=== PATIENT | male | born 1990 | race Caucasian/White ===

== ENCOUNTER 2017-03-18 14:41 | Emergency (ER) | payer BC ==
[2017-03-18] MEDS ORDERED: ONDANSETRON *ODT* 4 MG TABLET SL ONE (14:55)
--- NOTE | 2017-03-18 14:55 | PDOC ---
Rapid Medical Evaluation Time Seen by Provider: 03/18/17 14:51 Medical Evaluation: 03/18/17 14:51 The patient presents with a chief complaint of: Vomiting since yesterday afternoon. Vomits with eating. Denies fever, diarrhea, constipation. Denies abdominal pain I have performed a brief in-person evaluation of this patient; Pertinent physical exam findings: Soft non-tender abdomen. No rebound or guarding I have ordered the following: Quoc The patient will proceed to the ED for further evaluation.
[2017-03-18 14:57] VITALS: BP 128/80; PULSE 88; TEMP 99.1; BMI 29.7
--- NOTE | 2017-03-18 15:34 | PDOC ---
History of Present Illness - General Chief Complaint: Nausea/Vomiting Stated Complaint: VOMITING Time Seen by Provider: 03/18/17 14:51 History Source: Patient Exam Limitations: No Limitations, Language Barrier - History of Present Illness Initial Comments: 03/18/17 15:50 Patient is a [26-year-old male with no significant medical history currently with cough and cold-like symptoms took 2 [id number] cold medicines yesterday, took 4 tablets at one time has been dizzy and nauseous since, vomited 17 times since taking the medication. Patient denies any chest pain or shortness of breath, no abdominal pain just complaining of significant vertigo and nausea.] Past Medical History: [Denies]. Allergies: No known allergies Medications: [cold ease, and advil cold and flu PRN] Family History: Non-contributory Social History: Denies smoking, alcohol use, or IVDU Vital signs on arrival are [notable for pulse of 96.] Review of Systems GENERAL/CONSTITUTIONAL: [No fever or chills. No weakness. No weight change.] HEAD, EYES, EARS, NOSE AND THROAT: [Nasal congestion, runny nose No change in vision. No ear pain or discharge. No sore throat. ] CARDIOVASCULAR: [No chest pain or shortness of breath.] RESPIRATORY: [No cough, wheezing, or hemoptysis.] GASTROINTESTINAL: [No nausea, vomiting, diarrhea or constipation. No rectal bleeding.] GENITOURINARY: [No dysuria, frequency, or change in urination.] MUSCULOSKELETAL: [No joint or muscle swelling or pain. No neck or back pain.] SKIN AND BREASTS: [No rash or easy bruising.] NEUROLOGIC: [No headache, vertigo, loss of consciousness, or loss of sensation.] PSYCHIATRIC: [No depression or anxiety.] ENDOCRINE: [No increased thirst. No abnormal weight change.] HEMATOLOGIC/LYMPHATIC: [No anemia, easy bleeding, or history of blood clots.] ALLERGIC/IMMUNOLOGIC: [No hives or skin allergy. No latex allergy.] Physical Exam: GENERAL: [The patient is awake, alert, and fully oriented, in no acute distress. ] HEAD: [Normal with no signs of trauma.] EYES: [Pupils equal, round and reactive to light, extraocular movements intact, sclera anicteric, conjunctiva clear. Nystagmus] ENT: [Ears normal, nares patent, oropharynx clear without exudates. Moist mucous membranes. No uvula deviation] NECK: [Normal range of motion, supple without lymphadenopathy, JVD, or masses.] LUNGS: [Breath sounds equal, clear to auscultation bilaterally. No wheezes, and no crackles.] HEART: [Regular rate and rhythm, normal S1 and S2 without murmur, rub or gallop. ] ABDOMEN: [Soft, nontender, normoactive bowel sounds. No guarding, no rebound. No masses. No bruising or abrasions] MUSCULOSKELETAL: [Normal range of motion, no edema. No clubbing or cyanosis. No cords, erythema, or tenderness. No CVA Tenderness with fist.] NEUROLOGICAL: [Cranial nerves II through XII grossly intact. Normal speech, normal gait. Positive Romberg] PSYCH: [Normal mood, normal affect.] SKIN: [Warm, Dry, normal turgor, no rashes or lesions noted.] 03/18/17 16:37 Past History - Past Medical History Allergies/Adverse Reactions: Allergies Allergy/AdvReac Type Severity Reaction Status Date / Time No Known Allergies Allergy Verified 03/18/17 15:24 Home Medications: Ambulatory Orders Ondansetron [Zofran Odt -] 4 mg SL TID #21 od.tablet 03/18/17 - Suicide/Smoking/Psychosocial Hx Smoking History: Never smoked Have you smoked in the past 12 months: No Hx Alcohol Use: No Drug/Substance Use Hx: No *Physical Exam - Vital Signs Last Vital Signs Temp Pulse Resp BP Pulse Ox 99.1 F 88 20 128/80 98 03/18/17 14:53 03/18/17 14:53 03/18/17 14:53 03/18/17 14:53 03/18/17 14:53 ED Treatment Course - LABORATORY CBC & Chemistry Diagram: 03/18/17 15:50 03/18/17 15:50 Medical Decision Making - Medical Decision Making 03/18/17 15:52 A/P: Patient here for evaluation of dizziness, cough and cold-like symptoms patient has had significant vertigo with multiple episodes of vomiting since taking cold medication yesterday. Zofran was given while in triage will send CBC and CMP because of amount of medication taken for cough and cold-like symptoms to rule out any kidney or liver damage. 1 L of normal saline also send rapid influenza 03/18/17 16:37 03/18/17 17:09 Laboratory Results - last 24 hr 03/18/17 03/18/17 15:50 15:50 WBC 12.8 H RBC 5.14 Hgb 15.3 Hct 46.0 MCV 89.6 MCH 29.7 MCHC 33.2 RDW 12.9 Plt Count 199 MPV 10.0 Neutrophils % 84.1 H Lymphocytes % 9.3 Monocytes % 5.6 Eosinophils % 0.7 Basophils % 0.3 Sodium 138 Potassium 4.3 Chloride 99 Carbon Dioxide 31 Anion Gap 8 BUN 11 Creatinine 0.7 Creat Clearance w eGFR > 60 Random Glucose 106 Calcium 9.8 Total Bilirubin 1.8 H AST 16 ALT 39 Alkaline Phosphatase 103 Total Protein 8.3 H Albumin 4.5 Patient's white count is elevated with no shift. Patient stated no abdominal pain, increased nausea Zofran second dose 4 mg given still receiving his IV fluids. He reports that he feels better after IV fluids, able to tolerate fluids. We'll DC patient home on Zofran increase fluid intake if fever, abdominal pain, or any other concern patient to return immediately to ER. He denies any abdominal pain prior to discharge. I discussed the physical exam findings, ancillary test results and final diagnoses with the patient. I answered all of the patient's questions. The patient was satisfied with the care received and felt comfortable with the discharge plan and treatment plan. The patient will call to arrange follow-up and will return to the Emergency Department with any new, persistent or worsening symptoms. *DC/Admit/Observation/Transfer Diagnosis at time of Disposition: Nausea & vomiting Qualifiers: Vomiting type: unspecified Vomiting Intractability: non-intractable Qualified Code(s): R11.2 - Nausea with vomiting, unspecified Medication reaction Qualifiers: Encounter type: initial encounter Qualified Code(s): T88.7XXA - Unspecified adverse effect of drug or medicament, initial encounter - Discharge Dispostion Disposition: HOME Condition at time of disposition: Stable Admit: No - Prescriptions Prescriptions: Ondansetron [Zofran Odt -] 4 mg SL TID #21 od.tablet - Referrals Referrals: Parish Hurtado MD [Primary Care Provider] - - Patient Instructions Printed Discharge Instructions: DI for Vomiting -- Adult Additional Instructions: Increase fluids, Gatorade Do not eat any fried foods, milk or acidic foods Do not take any medication [id number] until symptoms are resolving If unable to eat or drink, increased nausea or pain return to ER immediately - Post Discharge Activity Forms/Work/School Notes: Back to Work
[2017-03-18] MEDS ORDERED: SODIUM CHLORIDE 0.9% 1000 ML INFUS.BAG IV ONE (15:35)
[2017-03-18 15:57] LABS: BASO % 0.3 % (0-2.0); EOS # 0.1 #; EOS % 0.7 % (0-4.5); LYMPH # 1.2; MCH 29.7 pg (25.7-33.7); MCHC 33.2 g/dl (32.0-35.9); MEAN CELL VOLUME 89.6 fl (80-96); MONO # 0.7 #; NEUT # 10.8 #; NEUT % 84.1 % (42.8-82.8); PLATELET COUNT 199 K/MM3 (134-434); RDW 12.9 % (11.9-15.9); WHITE BLOOD COUNT 12.8 K/mm3 (4.0-10.0)
[2017-03-18 16:38] LABS: GLUCOSE,RANDOM 106 mg/dL (74-106)
[2017-03-18 16:39] LABS: ANION GAP 8 (8-16); CALCIUM 9.8 mg/dL (8.5-10.1); CO2 31 mmol/L (21-32); CREATININE 0.7 mg/dL (0.7-1.3)
[2017-03-18 16:40] LABS: ALBUMIN 4.5 g/dl (3.4-5.0); ALK PHOS 103 U/L (45-117); BILIRUBIN,TOTAL 1.8 mg/dL (0.2-1.0); SGOT/AST 16 U/L (15-37); SGPT/ALT 39 U/L (12-78); TOT PROT 8.3 g/dl (6.4-8.2)
[2017-03-18] MEDS ORDERED: ONDANSETRON 4 MG TABLET PO ONE (17:07)
[2017-03-18] MEDS ORDERED: ONDANSETRON *ODT* 4 MG TABLET ONE (17:12)
== END 2017-03-18 18:01 | disposition home or self-care (01) ==
LOC: JERFT 14:41
DX: R11.2 Nausea with vomiting, unspecified (principal); T50.995A Adverse effect of other drugs, medicaments and biological substances, initial encounter; Y92.89 Other specified places as the place of occurrence of the external cause
CPT/HCPCS: 36415; 80053; 85025; 87804; 99281-25

== ENCOUNTER 2022-10-15 11:17 | Emergency (ER) | payer BC ==
[2022-10-15 11:32] VITALS: BP 135/73; PULSE 78; RESP 17; TEMP 98.4; BMI 30.5
[2022-10-15] MEDS ORDERED: KETOROLAC TROMETHAMINE 30 MG/1 ML VIAL IM ONE (11:54)
[2022-10-15] MEDS ORDERED: KETOROLAC TROMETHAMINE 30 MG/1 ML VIAL ONE (11:56)
[2022-10-15 13:20] LABS: BASO % 1.2 % (0-2.0); EOS % 1.6 % (0-4.5); HEMATOCRIT 46.2 % (35.4-49); LYMPH % 36.1 % (8-40); MCH 29.1 pg (25.7-33.7); MCHC 32.5 g/dl (32.0-35.9); MEAN CELL VOLUME 89.5 fl (80-96); MEAN PLT VOLUME 10.6 fl (7.5-11.1); MONO % 8.2 % (3.8-10.2); NEUT % 52.9 % (42.8-82.8); PLATELET COUNT 243 10^3/uL (134-434); RBC 5.16 M/mm3 (4.00-5.60); RDW 13.1 % (11.9-15.9); WHITE BLOOD COUNT 6.1 K/mm3 (4.0-10.0)
[2022-10-15 13:42] LABS: URINE APPEARANCE CLEAR; URINE BILIRUBIN NEGATIVE (NEGATIVE); URINE COLOR YELLOW; URINE GLUCOSE (UA) NEGATIVE (NEGATIVE); URINE KETONE NEGATIVE (NEGATIVE); URINE LEUK ESTERASE NEGATIVE (NEGATIVE); URINE NITRITE NEGATIVE (NEGATIVE); URINE PROTEIN NEGATIVE (NEGATIVE); URINE UROBILINOGEN 0.2 mg/dL (0.2-1.0)
[2022-10-15 13:49] LABS: POTASSIUM 4.4 mmol/L (3.5-5.1)
[2022-10-15 13:51] LABS: ALBUMIN 4.2 g/dl (3.4-5.0); CALCIUM 9.3 mg/dL (8.5-10.1)
[2022-10-15 13:52] LABS: BLOOD UREA NITROGEN 7.5 mg/dL (7-18)
[2022-10-15 13:55] LABS: CREATININE 0.7 mg/dL (0.55-1.3)
== END 2022-10-15 16:03 | disposition home or self-care (01) ==
LOC: JERFT 11:17
PROC: 3E0233Z Introduction of Anti-inflammatory into Muscle, Percutaneous Approach (ICD-10-PCS; principal; 2022-10-15)
DX: S39.012A Strain of muscle, fascia and tendon of lower back, initial encounter (principal); X50.0XXA Overexertion from strenuous movement or load, initial encounter
CPT/HCPCS: 36415; 72100-TC-FY; 74176-TC; 80053; 81003; 85025; 99285-25